=== PATIENT | male | born 1995 | race Two or more races ===

== ENCOUNTER 2020-05-18 09:52 | Outpatient (CLI) | payer OTHER | END 2020-05-18 09:53 | disposition home or self-care (01) | LOC: LAB 09:52 | PROVIDERS: ATTEND Surgery | DX: Z01.818 Encounter for other preprocedural examination (principal); D17.1 Benign lipomatous neoplasm of skin and subcutaneous tissue of trunk | CPT/HCPCS: 81599 ==

== ENCOUNTER 2020-05-21 11:52 | Day surgery (SDC) | payer OTHER ==
[2020-05-21] MEDS ORDERED: fentaNYL 100 MCG/2 ML VIAL IVP ONE (11:53)
[2020-05-21] MEDS ORDERED: DEXAMETHASONE 4 MG/ML VIAL IVP ONE (11:53)
[2020-05-21] MEDS ORDERED: MIDAZOLAM 2 MG/2 ML VIAL IVP ONE (11:53)
[2020-05-21] MEDS ORDERED: ONDANSETRON 4 MG/2 ML VIAL IVP ONE (11:53)
[2020-05-21] MEDS ORDERED: LACTATED RINGERS 1,000 ML IV ONE ×2 (12:21→15:51)
--- NOTE | 2020-05-21 13:53 | ANESTHESIA ---
Pre-Anesthesia VS, & Labs - Diagnosis back lipoma - Procedure excision back lipoma Vital Signs: Temp Pulse Resp BP Pulse Ox 36.6 C 65 20 135/81 H 98 05/21/20 12:17 05/21/20 12:17 05/21/20 12:17 05/21/20 12:17 05/21/20 12:17 Height 5 ft 7 in Weight (kg) 95 kg - NPO >8 hours - Lab Results Lab results reviewed: Yes Home Medications and Allergies Home Medications: Ambulatory Orders Loratadine [Claritin] 10 mg PO DAILY PRN 05/13/20 Loratadine [Claritin] 10 mg PO DAILY PRN 05/13/20 Allergies/Adverse Reactions: Allergies Allergy/AdvReac Type Severity Reaction Status Date / Time No Known Drug Allergies Allergy Verified 05/13/20 14:20 Anes History & Medical History - Anesthetic History Anesthesia Complications: reports: No previous complications Family history of Anesthesia Complications: Denies Family history of Malignant Hyperthermia: Denies - Medical History Cardiovascular: reports: None Pulmonary: reports: None Gastrointestinal: reports: None Urinary: reports: None Musculoskeletal: reports: None Endocrine/Autoimmune: reports: None Skin: reports: None Other Past Medical History: obesity Exam General: Alert, Oriented x3, Cooperative Dental: WNL Mouth Opening: Greater than 4 Fingerbreadths Neck Mobility: Normal Mallampati classification: III (snores) Thyromental Distance: 4-6 cm Respiratory: Lungs clear Cardiovascular: Regular rate Plan Anesthesia Type: General, MAC Consent for Procedure(s) Verified and Reviewed: Yes Code Status: Attempt Resuscitation ASA classification: 2-Mild systemic disease Is this case an emergency?: No
[2020-05-21] MEDS ORDERED: BUPIVACAINE 0.25% PF 30 ML VIAL ONE (15:18)
[2020-05-21] MEDS ORDERED: LIDOCAINE 1%-EPI 1:100000 20 ML MDV ONE (15:18)
[2020-05-21] MEDS ORDERED: BUPIVACAINE 0.25% PF 30 ML VIAL SUBQ ONE ×2 (15:45)
[2020-05-21] MEDS ORDERED: LIDOCAINE 1%-EPI 1:100000 20 ML MDV SUBQ ONE (15:47)
[2020-05-21] MEDS ORDERED: HYDROcod/ACETAM 5/325 MG TABLET PO PRN (16:23)
[2020-05-21 17:15] VITALS: BP 125/77
--- NOTE | 2020-05-21 23:45 | OPERATIVE REPORT ---
DATE OF SERVICE: 05/21/2020 Physician: Benny Abdullahi MD PREOPERATIVE DIAGNOSIS: Painful and growing left lower back lipoma. POSTOPERATIVE DIAGNOSIS: Painful and growing left lower back lipoma. PROCEDURE PERFORMED 1. Excision of 5 cm left lower back lipoma. 2. Intermediate repair of 5 cm incision. SURGEON: Benny Abdullahi MD PLASTICS SEASONER OPERATOR: None. TYPE OF ANESTHESIA: 1. Monitored anesthesia care. 2. IV sedation. 3. Local anesthesia. COMPLICATIONS: None. SPECIMEN: Clinically benign, not sent for pathology. ESTIMATED BLOOD LOSS: None. COMPLICATIONS: None. INDICATIONS FOR PROCEDURE: Patient is a healthy, active 25-year-old with a growing and painful and t gracie lower back lipoma. He presents for excision. Risks discussed, alternatives discussed. All qu estions answered and consent obtained. DESCRIPTION OF PROCEDURE: Patient was properly identified, brought to the operating room and placed in supine position. Monitored anesthesia care was given. He was carefully repositioned, right later al decubitus. He was prepped and draped in a sterile fashion. Antibiotics were not given. Local an esthetic was given to the area. A vertical up and down 5 cm incision was made directly over the lipo ma. The lipoma was removed in its entirety. With gentle retraction and cutting current cautery. He mostasis was assured. Skin flaps were closed back down towards the fascia with interrupted 2-0 Vicry l suture. Skin edges were reapproximated with buried interrupted 2-0 Vicryl suture. Skin was furthe r closed with a running 4-0 Monocryl subcuticular suture. Steri-Strips and dressing were applied. H e tolerated the procedure very well. TD: 05/21/2020 16:36
== END 2020-05-21 11:53 | disposition home or self-care (01) ==
LOC: SDS 11:52
PROVIDERS: ATTEND Surgery
PROC: 0JB70ZZ Excision of Back Subcutaneous Tissue and Fascia, Open Approach (ICD-10-PCS; 2020-05-21)
PROC: 0JQ70ZZ Repair Back Subcutaneous Tissue and Fascia, Open Approach (ICD-10-PCS; principal; 2020-05-21 13:00)
DX: D17.1 Benign lipomatous neoplasm of skin and subcutaneous tissue of trunk (principal)
CPT/HCPCS: 11406; 12032; J7120